=== PATIENT | female | born 1965 | race Caucasian/White ===

== ENCOUNTER 2020-12-18 20:08 | Emergency (ER) | payer OTHER ==
[2020-12-18] MEDS ORDERED: PREDNISONE20 MG PO (21:52)
[2020-12-18] MEDS ORDERED: HYDROXYZINE HCL25 MG PO (21:52)
== END 2020-12-18 22:03 | disposition home or self-care (01) ==
LOC: ER1 20:08
DX: L50.9 Urticaria, unspecified (principal); Z20.822 Contact with and (suspected) exposure to COVID-19; F17.210 Nicotine dependence, cigarettes, uncomplicated
CPT/HCPCS: 99283; Q0177; U0002